=== PATIENT | female | born 1970 | race Caucasian/White ===

== ENCOUNTER 2019-12-03 12:43 | Outpatient (CLI) | payer BC, SELFPAY ==
--- NOTE | 2019-12-03 12:56 | XR_ITS ---
WS: [id number] LATERAL LUMBAR SPINE: 3 view. Lateral radiographs are performed in upright neutral, flexion and extension to the patient's toleranc e. HISTORY: LOW BACK PAIN COMPARISON: 05/23/2018 Mild concave deformity involving the superior endplate of L4 consistent with the previously described compression fracture. No retropulsion. Less than 2 mm retrolisthesis of L2-L4. No instability with f lexion or extension. XR/XR lumbar spine f/e only [id number] IMPRESSION: 1. No lumbar spine instability. 2. Stable 10% compression fracture L4.
== END 2019-12-03 12:44 | disposition home or self-care (01) ==
PROVIDERS: Family Provider Nurse Practitioner Family; PCP Nurse Practitioner Family; Visit Provider Nurse Practitioner
DX: M48.56XA Collapsed vertebra, not elsewhere classified, lumbar region, initial encounter for fracture (principal); M54.5 Low back pain
CPT/HCPCS: 72120

== ENCOUNTER 2019-12-06 10:08 | Outpatient (CLI) | payer BC, SELFPAY ==
--- NOTE | 2019-12-06 10:27 | MR_ITS ---
WS: [id number] MRI LUMBAR SPINE NONCONTRAST HISTORY: LOW BACK PAIN COMPARISON: None available. TECHNIQUE: Sagittal and axial multisequence imaging is submitted. Normal posterior lumbar alignment. Mild anterior wedging of L4. No acute edema within the vertebral b florinda. There is edema within the LEFT L4 pedicle and lamina and the inferior L3 articular facet on the LEFT. Small amount of edema in the interspinous ligaments at L3-4 and L4-5 on the LEFT. Disc spaces and vertebral body heights are well-preserved. Conus terminates normally at L1. L1-L2: Normal. L2-L3: Small amount of fluid in the facet joints. Very slight disc bulging without stenosis. L3-L4: Mild ligamentum flavum hypertrophy and annular disc bulging. No significant stenosis. L4-L5: Mild ligamentum flavum disease and facet arthropathy. RIGHT facet joint cyst is slightly lobul ated and heterogeneous measuring 9 mm. There is also an annular fissure LEFT subarticular recess. No significant stenosis although there is mild beginning encroachment and narrowing of the foramen. L5-S1: Mild annular disc bulging. Paravertebral soft tissues are normal. MR/MR lumbar spine wo con* [id number] IMPRESSION: 1. Mild anterior wedging of L4. Due to a remote injury, new since 2010 but pre sent on 05/23/2018. 2. Marrow edema in the LEFT L4 pedicle and lamina and the inferior LEFT L3 art icular facet. Additional edema in the adjacent interspinous ligaments. May be d ue to mild inflammatory synovitis/arthropathy or instability. 3. Facet joint cyst measures 9 mm on the RIGHT at L4-5.
== END 2019-12-06 10:09 | disposition home or self-care (01) ==
LOC: RADWPI 10:11
PROVIDERS: Family Provider Nurse Practitioner Family; PCP Nurse Practitioner Family; Visit Provider Nurse Practitioner
DX: M53.86 Other specified dorsopathies, lumbar region (principal); M54.5 Low back pain
CPT/HCPCS: 72148

== ENCOUNTER → 2020-04-27 11:45 | Outpatient (BNVA) | payer BC, OTHER, SELFPAY | PROVIDERS: Family Provider Nurse Practitioner Family; PCP Nurse Practitioner Family; Visit Provider Obstetrics & Gynecology | DX: N93.9 Abnormal uterine and vaginal bleeding, unspecified (principal) | CPT/HCPCS: 81025 ==

== ENCOUNTER 2020-06-01 16:51 | Inpatient (IN) | payer BC, OTHER, SELFPAY ==
[2020-06-01] VITALS (14 sets, daily range): BP systolic 93–117; BP diastolic 48–67; PULSE 95–120; RESP 22–30; TEMP 36.6–39.2; O2SAT 100
--- NOTE | 2020-06-01 17:07 | W.ED.RECABL ---
HPI - Recheck/Abnormal Lab/Rx General: Chief Complaint: Recheck/Abnormal Lab/Rx Stated Complaint: abnormal labs Time Seen by Provider: 06/01/20 17:02 History of Present Illness: HPI narrative: 49-year-old female sent over by gynecology over concerns of low blood count. The patient's had some ongoing vaginal bleeding and was found to have a hemoglobin of 6.5 today. The patient hasn't felt well for quite some time she's had bleeding for several months now. Over the past several days she's had intermittent episodes of shortness of breath and temperature elevation she was tested for glesaon virus and found to be negative although they've recommended quarantine. The patient is generally weak and has concerns of fatigue and malaise. She denies any significant abdominal pain. She occasionally is nauseated. She is fairly anxious about her health. complaint: abnormal lab Initial visit (ago): week(s) Review of Systems General: Reports: 10 or more systems reviewed and unremarkable except in HPI and below Const: Reports: fever(s), fatigue and malaise; Denies: diaphoresis Eyes: Denies: change in vision ENMT: Denies: throat pain Card: Reports: dyspnea on exertion Resp: Reports: dyspnea; Denies: hemoptysis GI: Reports: nausea; Denies: abdominal pain, vomiting or change in bowel habits Musc: Denies: neck pain Skin/Breast: Denies: rash Psych: Reports: anxiety Samuel/Lymph: Reports: easy bruising; Denies: petechiae, purpura, enlarged lymph nodes or tender lymph nodes [facility] PFSH: Medical History Abnormal uterine bleeding (AUB) The most common causes of excessive menstrual bleeding are: anovulation, abnormal growths in the uterus, such as polyps or fibroids, and bleeding disorders. Evaluation entails blood tests to look for a bleeding disorder, anemia, or thyroid disease, a pelvic ultrasound, which can detect endometrial polyps and fibroids, an endometrial biopsy or a hysteroscopy. Treatment options are medical treatment and surgical treatment. But the best treatment of heavy menstrual bleeding will depend on the cause of the bleeding and the patient?s preferences with need to prevent or desire to have children in the future. Medical treatment can be Hormonal control, (the pill, skin patch, vaginal ring, shot, hormonal IUD, and implant), Antifibrinolytic medicines, Non-steroidal anti-inflammatory drugs, Progestin pills, GnRH agonists. But due to the patient's smoking/tobacco use estrogen treatment is not advisable. H&H on 10/01/19 she was Hgb at 7.3 and HCT at 22. She refers she feel dizziness. Since she had continue to bleed I will admit the patient for blood transfusion and initiation of tranexamic acid treatment. Anxiety and depression Ulnar nerve damage Left ulnar nerve surgery Surgical History H/O dilation and curettage H/O LEEP at age 26. Family History Father Chronic kidney disease (CKD) Grandmother Dementia Brother Suicide Denies family history of Diabetes CAD (coronary artery disease) Clotting disorder Hyperlipidemia Psychiatric illness Anesthesia complication Bleeding disorder Family history of premature coronary artery disease Lung disease Cancer Hypertension Stroke Social History Smoking and tobacco status: current every day smoker cigarettes [ Other cigarette details: Started at age 14 ] Alcohol intake: current Alcohol intake frequency: holidays/special occasions only Substance/Drug Use: never Other details last substance use: Denies drug use Lives independently: Yes Household members: none Marital status: Single Current occupational status: employed Physical Exam Const: COMMON NORMALS: no acute distress, average body habitus, patient oriented x3, no limitations, healthy appearing, alert and well nourished HENMT: COMMON NORMALS: normocephalic HEAD & SCALP: normocephalic Eye: COMMON NORMALS: Equal, round and reactive pupils present, EOMs intact bilaterally and conjunctivae normal CONJUNCTIVA: Yes conjunctivae normal PUPIL: Yes Equal, round and reactive pupils present Neck/C-Spine: COMMON NORMALS: full ROM, no lymphadenopathy, supple, no meningeal signs, no JVD, Thyroid normal and No carotid bruits THYROID: Thyroid normal Chest: COMMONS NORMALS: normal inspection of the chest and normal palpation of entire chest wall Resp: COMMON NORMALS: normal respiratory effort, No retractions, No use of accessory muscles, clear to auscultation bilaterally and percussion normal AUSCULTATION: clear to auscultation bilaterally PERCUSSION: percussion normal Cardio: COMMON NORMALS: no JVD GI: COMMON NORMALS: Normal to inspection, nondistended, normoactive bowel sounds present, Soft to palpation, non-tender, No hepatosplenomegaly present, no masses and no bruits PALPATION: Yes Soft to palpation and Yes No hepatosplenomegaly present : COMMON NORMALS: Yes no CVA tenderness BLADDER/KIDNEY EXAM: Yes no CVA tenderness Back/Pelvis: COMMON NORMALS: no CVA tenderness Extremity: COMMON NORMALS: normal to inspection, full ROM, capillary refill normal, no joint enlargement, no clubbing, cyanosis or edema, no calf tenderness and no pedal edema Neuro: COMMON NORMALS: patient oriented x3 SENSORIUM/ORIENTATION: Yes alert MENINGEAL SIGNS: Yes no meningeal signs Skin: COMMON NORMALS: no rashes or lesions noted, no wounds, turgor normal, no jaundice, no petechiae and no mottling GENERAL SKIN EXAM: no rashes or lesions noted and turgor normal Course Vital Signs: Vital signs: Vital Signs Temperature 99.5 F 06/01/20 21:49 Pulse Rate 115 H 06/01/20 21:49 Respiratory Rate 24 H 06/01/20 21:49 Blood Pressure 107/48 06/01/20 21:49 Pulse Oximetry 100 06/01/20 21:49 MDM - Recheck/Abnormal Lab/Rx MDM Narrative: Medical decision making narrative: discussed differential diagnosis. Recommend further workup visits not clear this is just straightforward blood loss anemia. Check ultrasound of her pelvis as well as some routine labs. She is febrile and tachycardic we have to consider pneumonia and other infections. Check a chest x-ray do serial reexaminations. Chest x-ray was normal we sent a d-dimer was elevated talked about the risks benefits alternatives and complications of performing a CT scan and she agreed to admit for diagnostic purposes this was necessary. We'll pretreat her with some fluids and Solu-Medrol and obtain a CT scan of her abdomen and pelvis as well as her chest to rule out pulmonary embolism and get further information she may have pneumonia or other entities will be able to diagnose more accurately treat I don't think it's appropriate this point start empiric antibiotics. There certainly is some diagnostic uncertainty and I've talked to the patient hospitalist about this. Lab Data: Labs: Lab Results 06/01/20 06/01/20 06/01/20 Range/Units 17:30 17:30 17:30 D-Dimer 1.83 H (0-0.59) ug/mIFE U Sodium 130 L (136-145) mmol/L Potassium 3.3 L (3.5-5.1) mmol/L Chloride 100 (98-107) mmol/L Carbon Dioxide 16 L (22-29) mmol/L Anion Gap 17.3 (5-19) BUN 26 H (6-20) mg/dL Creatinine 2.2 H (0.5-0.9) mg/dL GFR Calculation 23.7 L (90-130) mL/min Glucose 144 H (65-115) mg/dL Calculated Osmolal ity 269 L (285-295) mOsm/k g Calcium 8.1 L (8.5-10.5) mg/dL Blood Type A Positive Rho(D) Type Positive Antibody Screen Negative Discharge Plan Discharge Patient Disposition: Admitted As Inpatient Clinical Impression: Abnormal uterine bleeding (AUB), Acute kidney injury, Acute blood loss anemia, Elevated d-dimer Fever Qualifiers: Fever type: unspecified Qualified Code(s): R50.9 - Fever, unspecified Condition: Stable Referrals: Leslie Kimball APN [Primary Care Provider] - Coding Level of Care Code ED Janitor Supervisor for Jagjit Pelletier
--- NOTE | 2020-06-01 17:34 | XRR_ITS ---
PROCEDURE INFORMATION: Exam: XR Chest, 1 View Exam date and time: 06/01/2020 5:52 PM Age: 49 years old Clinical indication: Dyspnea; Additional info: SOB TECHNIQUE: Imaging protocol: XR of the chest Views: 1 view. COMPARISON: No relevant prior studies available. FINDINGS: Lungs: Unremarkable. No consolidation. Pleural space: Unremarkable. No pleural effusion. No pneumothorax. Heart/Mediastinum: Unremarkable. No cardiomegaly. Bones/joints: Unremarkable. XR/XR chest 1V portable [id number] IMPRESSION: No acute findings.
[2020-06-01 17:57] LABS: Anion Gap 17.3 (5-19); Blood Urea Nitrogen 26 mg/dL (6-20); Calcium 8.1 mg/dL (8.5-10.5); Carbon Dioxide 16 mmol/L (22-29); Chloride 100 mmol/L (98-107); Glomerular Filtration Rate 23.7 mL/min (90-130); Glucose 144 mg/dL (65-115); Osmolality Calculated 269 mOsm/kg (285-295); Potassium 3.3 mmol/L (3.5-5.1); Sodium 130 mmol/L (136-145)
--- NOTE | 2020-06-01 18:42 | USR_ITS ---
PROCEDURE INFORMATION: Exam: US Nonobstetric Pelvis; Complete Exam date and time: 06/01/2020 7:54 PM Age: 49 years old Clinical indication: Menstruation abnormalities; Irregular menstruation; Additional info: Suprapubic pain, blood loss anemia TECHNIQUE: Imaging protocol: Transabdominal pelvic nonobstetric ultrasound. Complete exam. Real time ultrasound with image documentation. COMPARISON: No relevant prior studies available. FINDINGS: Uterus/cervix: Examination reveals a markedly abnormal endometrium. The endometrial stripe cannot be clearly defined and there is no visible clear transition zone. The sonographic findings raise strong concern for potential endometrial carcinoma. The approximate dimensions of the endometrium are 3.4 cm in AP diameter by 3.8 cm in transverse diameter. Small nabothian cysts. Right adnexa: Right ovary appears sonographically unremarkable and measures 21 mm x 6 mm x 16 mm. Positive arterial flow to color Doppler assessment. Normal appearing follicle cysts. No visible right adnexal pathology. Left adnexa: The left ovary appears unremarkable measuring 24 mm x 9 mm x 17 mm. Positive arterial flow to color Doppler assessment. Normal appearing follicle cysts. No visible left adnexal pathology. Free fluid: No free fluid in the cul-de-sac. Bladder: Not imaged. US/US pelvic complete* [id number] IMPRESSION: Markedly abnormal appearing endometrium. Concern for endometrial carcinoma.
--- NOTE | 2020-06-01 20:35 | P.HP_ITS ---
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 Sinus tachycardia noted with pulse 110. She was referred to emergency department for evaluation. She reports that also has been having malaise, headache, and has been spiking fevers. Here fever 102.5. She reports that her headaches have been going on for months. However, malaise, chills, sweats, fevers have been going on since Friday. Due to this she was tested for COVID-19 at [facility] for which today she received the result which was negative. She denies any chest pain. She does have mild intermittent cough. She is not coughing up any phlegm or blood. Chest x-ray is not suggestive of pneumonia. Her headache is worse when she is coughing. She is also noted to have acute kidney injury, creatinine up to 2.2, with normal ba seline. She says she has been taking quite a bit of ibuprofen, intermittently with Tylenol to help with aches, pains, headaches and fever. She says her appetite has been poor since Friday, but she says she has been staying very well-hydrated drinking lots of water. Review of Systems Const: Denies: fever(s), chills, body aches or malaise Eyes: Denies: change in vision or eye redness ENMT: Denies: throat pain, oral sores or ear or mastoid pain Card: Denies: chest pain, edema, pre-syncope or dyspnea on exertion Resp: Denies: dyspnea, productive cough, change in phlegm color or hemoptysis GI: Denies: abdominal pain, nausea, vomiting, diarrhea, constipation, hematochezia or melena : Denies: flank pain, urinary frequency or hematuria Musc: Denies: back pain, joint swelling or joint redness Skin/Breast: Denies: rash, sores or new lesions Neuro: Denies: headache(s), numbness in extremities, weakness in extremities, dizziness, confusion or seizure-like activity Endo: Denies: polyuria or polydipsia Samuel/Lymph: Denies: easy bleeding or purpura All/Imm: Denies: urticaria, throat swelling or tongue swelling Medications/Allergies Home Medications Medication Instructions Recorded Confirmed Last Taken Type alprazolam 0.5 mg tablet 0.25 - 0.5 mg PO BID PRN tab 04/27/20 06/01/20 05/31/20 History citalopram 40 mg tablet 40 mg PO DAILY 04/27/20 06/01/20 06/01/20 History cyclobenzaprine 10 mg tablet 10 mg PO TID PRN 04/27/20 06/01/20 05/31/20 History ibuprofen 800 mg tablet 800 mg PO TID PRN 04/27/20 06/01/20 06/01/20 History multivitamin 1 tab PO DAILY 04/27/20 06/01/20 06/01/20 History acetaminophen [Tylenol Extra 1,000 mg PO PRN 06/01/20 06/01/20 06/01/20 History Strength] Allergies Allergy/AdvReac Type Severity Reaction Status Date / Time shellfish derived Allergy ALGY-Swell Verified 06/01/20 17:57 Lip/Tongue/Throat PFSH Acute PFSH: Medical History Abnormal uterine bleeding (AUB) The most common causes of excessive menstrual bleeding are: anovulation, abnormal growths in the uterus, such as polyps or fibroids, and bleeding disorders. Evaluation entails blood tests to look for a bleeding disorder, anemia, or thyroid disease, a pelvic ultrasound, which can detect endometrial polyps and fibroids, an endometrial biopsy or a hysteroscopy. Treatment options are medical treatment and surgical treatment. But the best treatment of heavy menstrual bleeding will depend on the cause of the bleeding and the patient?s preferences with need to prevent or desire to have children in the future. Medical treatment can be Hormonal control, (the pill, skin patch, vaginal ring, shot, hormonal IUD, and implant), Antifibrinolytic medicines, Non-steroidal anti-inflammatory drugs, Progestin pills, GnRH agonists. But due to the patient's smoking/tobacco use estrogen treatment is not advisable. H&H on 10/01/19 she was Hgb at 7.3 and HCT at 22. She refers she feel dizziness. Since she had continue to bleed I will admit the patient for blood transfusion and initiation of tranexamic acid treatment. Anxiety and depression Ulnar nerve damage Left ulnar nerve surgery Surgical History H/O dilation and curettage H/O LEEP at age 26. Family History Father Chronic kidney disease (CKD) Grandmother Dementia Brother Suicide Denies family history of Diabetes CAD (coronary artery disease) Clotting disorder Hyperlipidemia Psychiatric illness Anesthesia complication Bleeding disorder Family history of premature coronary artery disease Lung disease Cancer Hypertension Stroke Social History Smoking and tobacco status: current every day smoker cigarettes [ Other cigarette details: Started at age 14 ] Alcohol intake: current Alcohol intake frequency: holidays/special occasions only Substance/Drug Use: never Other details last substance use: Denies drug use Lives independently: Yes Household members: none Marital status: Single Current occupational status: employed Vitals/I&O/Wt Last Vital Signs Temp 98.2 F 06/01/20 17:00 Pulse 110 H 06/01/20 19:00 Resp 30 H 06/01/20 19:00 BP 111/61 06/01/20 19:00 Pulse Ox 100 06/01/20 19:00 Physical Exam Const: COMMON NORMALS: no acute distress and patient oriented x3 HENMT: COMMON NORMALS: oropharynx normal Neck/C-Spine: COMMON NORMALS: no JVD Resp: COMMON NORMALS: normal respiratory effort and clear to auscultation bilaterally AUSCULTATION: clear to auscultation bilaterally Cardio: COMMON NORMALS: no JVD, regular rhythm, S1 normal heart sound present, S2 normal heart sound present and No murmurs present (Cardio) RHYTHM: regular rhythm HEART SOUNDS: S1 normal heart sound present and S2 normal heart sound present GI: COMMON NORMALS: Normal to inspection, nondistended, normoactive bowel sounds present, Soft to palpation and non-tender PALPATION: Yes Soft to palpation : COMMON NORMALS: Yes no CVA tenderness Extremity: COMMON NORMALS: no joint enlargement and no pedal edema Neuro: COMMON NORMALS: patient oriented x3 and moves all extremities Skin: COMMON NORMALS: no rashes or lesions noted GENERAL SKIN EXAM: no rashes or lesions noted Data : 06/01/20 17:30 A&P Assessment and plan (1) Acute blood loss anemia: Hemoglobin down to 6.5. With symptomatic anemia with severe fatigability, tachycardia, soft blood pressure, 93/66, although without history of hyperten moses. Blood transfusion has been ordered for her. Recurrent vaginal bleeding as below. Pending evaluation by gynecology. Concern for possible endometrial cancer based on results of transvaginal ultrasound. Pending additional studies with regards to tachycardia, dyspnea, abnormal d- dimer, as well as fever, shortness of breath. Subsequently to be monitored in ICU. Status: Acute (2) Abnormal uterine bleeding (AUB): Recurrent uterine bleeding, reportedly with ultrasound and biopsy of endometrium back in September. Subsequently with recurrence again, seen on 04/27 and reassessed, had Nexplanon implanted, underwent course of treatment with tranexamic acid. Reports of continued bleeding subsequently up until yesterday when all bleeding stopped. With symptomatic anemia as above currently. Assessed with transvaginal ultrasound in ER with finding of grossly abnormal endometrium, concerning for endometrial cancer normal. Awaiting gynecologic evaluation by Dr. Santana. Status: Acute (3) Abnormal ultrasound of endometrium: Concerning for endometrial carcinoma. As above. Status: Acute (4) Elevated d-dimer: Reports having quite significant very easy fatigability, as well as dyspnea, intermittent cough since Friday. Noted with sinus tachycardia 110. At the same time does have fever. Possible Pascual carcinoma, smoking, control +/-tranexamic acid may add to her risk of VTE. Discussed with her concerned that VTE may be a possibility, possibly PE, and would require additional assessment. D-dimer was assessed, but was not low. Unfortunately with kidney injury not an optimal situation. Risk of contrast nephropathy was discussed with her. Also with possible sepsis, with fever, tachycardia, reports some abdominal fullness. Given source of sepsis is not clear, without any pneumonia visualized on chest x-ray, urine studies pending, but without any symptoms of dysuria, hematuria, or other symptoms of infection, with COVID-19 testing negative result come back today, concern is for other possible focus of infection. With tachycardia, soft blood pressure needs additional evaluation. VQ scan was discussed and considered, and may be preferred given kidney injury, however, this is not something is easily obtainable at this hour, and would not provide additional information for assessment of possible severe sepsis. Given need for additional imaging ER physician is recommending CT chest abdomen pelvis with contrast which would help rule out PE. Discussed also she has shellfish allergy, which appears was anaphylactic reaction, and would require premedication if iodinated contrast is administered, and he will discuss this with her It was also discussed with her that she would not be a candidate for anticoagula tion given active bleeding up until yesterday, severe anemia, possibility of endometrial carcinoma. In case PE was confirmed, would require placement of IVC filter device. Discussed w ER physician. Status: Acute (5) Fever: 102.5 Fahrenheit. Unclear source. Pending urinalysis. But denies any dysuria, hematuria, or other symptoms. Chest x-ray not suggestive of pneumonia. Was recently tested for COVID-19 and reports result was negative today. She is having some malaise, sweats, muscle aches, headache. Reports some abdominal fullness. This time would test with rapid flu. Also additional work-up as above, and include imaging of chest and abdomen due to concern for possible severe sepsis due to leukocytosis of 13, sinus tachycardia 116. Soft blood pressure. But also acute kidney injury, creatinine 2.2. Obtain blood cultures, lactic acid. For now is not started on antibiotic as there is truly no clear bacterial source of infection. There is no indication of tubo-ovarian abscess or other infection on transvaginal ultrasound. She denies any tampon use. Consideration that her fever may be coming from possible VTE. Less likely malignancy. Otherwise possible other viral infection. Or as last resort if no other explanation, possibly repeating COVID-19 testing may be considered. Status: Acute (6) Dyspnea: Additional work-up as above. No pneumonia on chest x-ray. She is saturating 98% on room air, although has been somewhat tachypneic, and so was placed on oxygen. She reports mild intermittent cough. Denies any phlegm production. No hemoptysis. There is no unilateral lower extremity swelling, d enies history of prior clots. D-dimer is abnormal. At this time additional evaluation as above to exclude PE as possible explanation. Otherwise easy fatigability may be explained by acute blood loss anemia which is symptomatic, although we will continue evaluating for additional causes of dyspnea. Continue monitor. Supportive oxygenation, wean down as tolerating. Status: Acute (7) Headache: Reports has been having headaches for several months. This appears not to be a chronic thing, but is bothered by it especially when she is coughing. Given chronicity will consider adding plain CT of the head. She is not having photophobia, neck tenderness or stiffness, or other meningeal signs. In case no other clinicians found, may need to consider additional ablation possibly by LP. For now given her respiratory complaints, lack of meningeal signs, and is completely alert, good insight, and no focal neurologic abnormalities, [employer] infection appears much less likely, also considering chronicity of her headache. But this needs to be kept as a possible consideration. Status: Acute (8) Acute kidney injury: Creatinine 2.2. Normal baseline. Not a clear etiology. Denies any hematuria. Denies any history of kidney stones. UA is pending. We will request additional urine studies with urine creatinine, sodium. Check kidney ultrasound. With consideration of sepsis as above is a possibility, may need to keep a consideration of possible severe sepsis with acute kidney injury, although it appears more likely that this is due to ibuprofen which she admits to taking quite a bit at home recently. Reports her appetite has been poor since Friday, however, does say she has been drinking quite a bit of water. Status: Acute (9) Anxiety and depression: Noted. Continue medications. Status: Acute Additional A&P Information Discussed in detail with patient, and she is agreeable with assessment and plan of treatment as currently. Answered all questions. Attestations Medical Necessity Statement*: Admission of over 2 midnights is going to needed for assessment management of acute symptomatic anemia, abnormal uterine bleeding, possible uterine cancer, as well as fever, malaise, tachycardia, abnormal d-dimer, acute kidney injury. 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
[2020-06-01 20:42] LABS: D Dimer 1.83 ug/mIFEU (0-0.59)
[2020-06-01] MEDS: acetaminophen 500 mg Tablet 1000 MG PO (20:52)
[2020-06-01] MEDS: sodium chloride 0.9% 1,000 ML 999 ML IV (20:53)
--- NOTE | 2020-06-01 20:54 | CTR_ITS ---
PROCEDURE INFORMATION: Exam: CT Angiography Chest With Contrast Exam date and time: 06/01/2020 9:43 PM Age: 49 years old Clinical indication: Abnormal findings; Abnormal radiologic finding of the abdomen; Radiologic exam and body structure: US abdomen; Abnormal radiologic exam of lung or chest; Additional info: Tachycardia, rule out pe. Abnormal US ? endometrial cancer TECHNIQUE: Imaging protocol: Computed tomographic angiography of the chest with intravenous contrast. 3D rendering: MIP and/or 3D reconstructed images were created by the technologist. Radiation optimization: All CT scans at this facility use at least one of these dose optimization techniques: automated exposure control; mA and/or kV adjustment per patient size (includes targeted exams where dose is matched to clinical indication); or iterative reconstruction. Contrast material: VISI 320; Contrast volume: 150 ml; Contrast route: INTRAVENOUS (IV); COMPARISON: CR XR chest 1V portable [id number] 06/01/2020 5:41 PM RADIATION DOSE METRICS: Total DLP (mGy-cm): 2835.77 FINDINGS: Pulmonary arteries: No visible pulmonary embolism/pulmonary arterial thrombus. Aorta: Unremarkable. No aortic aneurysm. No aortic dissection. Lungs: No visible active interstitial or alveolar airspace disease. No evidence for restrictive or reactive airway disease. Pleural space: Unremarkable. No pneumothorax. No pleural effusion. Heart: Unremarkable. No cardiomegaly. No pericardial effusion. Lymph nodes: Unremarkable. No enlarged lymph nodes. Bones/joints: No visible active osseous pathology. Soft tissues: Unremarkable. IMPRESSION: No visible pulmonary embolism/pulmonary arterial thrombus. PROCEDURE INFORMATION: Exam: CT Abdomen And Pelvis With Contrast Exam date and time: 06/01/2020 9:43 PM Age: 49 years old Clinical indication: Abnormal findings; Abnormal radiologic finding of the abdomen; Radiologic exam and body structure: US abdomen; Abnormal radiologic exam of lung or chest; Additional info: Tachycardia, rule out pe. Abnormal US ? endometrial cancer TECHNIQUE: Imaging protocol: Computed tomography of the abdomen and pelvis with intravenous contrast. Radiation optimization: All CT scans at this facility use at least one of these dose optimization techniques: automated exposure control; mA and/or kV adjustment per patient size (includes targeted exams where dose is matched to clinical indication); or iterative reconstruction. Contrast material: VISI 320; Contrast volume: 150 ml; Contrast route: INTRAVENOUS (IV); COMPARISON: CR XR chest 1V portable [id number] 06/01/2020 5:41 PM RADIATION DOSE METRICS: Total DLP (mGy-cm): 2835.77 FINDINGS: Liver: Tiny 6 mm low-density structure within the right hepatic lobe posterior segment. This is too small to characterize definitively. Suspect benign structure such as a tiny cyst versus tiny cavernous hemangioma. Liver otherwise unremarkable. Gallbladder and bile ducts: Normal. No calcified stones. No ductal dilation. Pancreas: Normal. No ductal dilation. Spleen: Tiny splenule. Spleen otherwise unremarkable. Adrenals: Normal. No mass. Kidneys and ureters: Right kidney appears edematous. Concern for mild right pyelonephritis. Incidental note of a tiny cortical cyst equator right kidney. No follow-up recommended. Left kidney unremarkable. No hydronephrosis or perinephric fluid bilaterally. No visible nephrolithiasis. No visible ureterolithiasis. Stomach and bowel: Unremarkable. No obstruction. No mucosal thickening. Appendix: The appendix is noninflamed. Intraperitoneal space: Unremarkable. No free air. No significant fluid collection. Vasculature: Unremarkable. No abdominal aortic aneurysm. Lymph nodes: No visible mesenteric or retroperitoneal lymphadenopathy. No visible pelvic lymphadenopathy. Bladder: Unremarkable as visualized. Reproductive: Enlarged uterus with an abnormal appearing endometrium. Please review ultrasound pelvis examination report same admission. Concern for endometrial carcinoma. Bones/joints: No visible active osseous pathology. No visible osteolytic or osteoblastic destructive process. Soft tissues: Unremarkable. CT/CT angio chest w abd pel w con IMPRESSION: 1. Findings raising suspicion for mild right pyelonephritis. 2. Enlarged uterus with an abnormal appearing endometrium. Please review ultrasound pelvic examination report same admission. Concern for endometrial carcinoma. 3. Other nonurgent and nonemergent findings as discussed in text. Radiation Dose CTDIVOL = (mGy): DLP = 2835.77~2835.77 (mGy-cm)
[2020-06-01] MEDS: diphenhydrAMINE 50 mg/mL SDV 1mL IVP (21:06)
[2020-06-01] MEDS: iodixanol 320 mg/mL 100mL Btl IV ×2 (22:30→22:31)
[2020-06-01 22:46] LABS: Bacteria Urine 2+; Bilirubin Urine Neg (NEGATIVE); Blood Urine 3+ (Negative); Glucose Urine UA Norm (Normal); Ketones Urine Negative (Negative); Leukocyte Esterase Urine 2+ (Negative); Nitrate Urine Negative (Negative); Protein Urine Trace (Negative); Specific Gravity, Urine 1.005 (1.005-1.030); Urine Appearance Clear (CLEAR); Urine Color Yellow (Yellow); Urobilinogen Urine Norm (Negative); pH Urine 5 (5-7)
[2020-06-01 22:47] LABS: Add Urine Culture? Yes
[2020-06-01 22:51] LABS: RBC Urine 0-4 /hpf (0-2); Squamous Epithelial Cell Urine 0-4 (0-5)
[2020-06-01] MEDS: sodium chloride 0.9% 1,000 ML 100 ML IV (23:01)
[2020-06-01 23:29] LABS: Influenza A by IFA Negative (Negative); Influenza B by IFA Negative (Negative)
[2020-06-02] VITALS (126 sets, daily range): BP systolic 59–129; BP diastolic 26–95; PULSE 65–113; RESP 12–37; TEMP 36.7–36.9; O2SAT 84–100
[2020-06-02] MEDS: cefTRIAXone 2,000 MG in sodium chloride 0.9% (plus) 50 ML 100 MG IV (00:52)
--- NOTE | 2020-06-02 05:34 | PC.NURSE ---
unable to apply SCD. difficulty locating SCD hose in hospital. will continue looking.
[2020-06-02] MEDS: sodium chloride 0.9% 1,000 ML 100 ML IV ×3 (05:59→22:13)
[2020-06-02 06:12] LABS: Basophils % 0.2 %; Hemoglobin 8.2 g/dL (11.5-15.3); Lymphocytes # 0.5 10^3/uL (0.8-4.8); Lymphocytes % 4.1 %; Mean Corpuscular HGB Conc 31.5 g/dL (30.0-36.0); Mean Corpuscular Hemoglobin 27.6 pg (28.0-34.0); Mean Corpuscular Volume 87.5 fL (81-99); Mean Platelet Volume 11.5 fL (7.4-10.4); Monocytes # 0.3 10^3/uL (0.2-0.9); Neutrophils # 10.25 10^3/uL (1.8-7.7); Nucleated Red Blood Cells % 0 %; Platelet Count 262 10^3/cmm (130-400); Red Blood Count 2.97 10^6/uL (4.1-5.3); Red Cell Distribution Width 16.5 % (12.1-15.1); White Blood Count 11.2 10^3/uL (4.0-10.0)
[2020-06-02 06:27] LABS: Lactate (Lactic Acid level) 1.3 mmol/L (0.5-2.2)
[2020-06-02 07:21] LABS: Anion Gap 16.9 (5-19); Blood Urea Nitrogen 25 mg/dL (6-20); Calcium 8.3 mg/dL (8.5-10.5); Carbon Dioxide 14 mmol/L (22-29); Chloride 110 mmol/L (98-107); Glomerular Filtration Rate 29.9 mL/min (90-130); Glucose 169 mg/dL (65-115); Osmolality Calculated 285 mOsm/kg (285-295); Potassium 3.9 mmol/L (3.5-5.1); Sodium 137 mmol/L (136-145)
[2020-06-02] MEDS: citalopram 20 mg Tablet 40 MG PO (11:04)
--- NOTE | 2020-06-02 12:02 | PC.RESP ---
Smoking Cessation information sent to patient.
--- NOTE | 2020-06-02 16:55 | P.PN_ITS ---
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 With symptomatic anemia with severe fatigability, tachycardia, soft blood pressure, 93/66, although without history of hypertension. Blood transfusion has been ordered for her. Recurrent vaginal bleeding as below. Pending evaluation by gynecology. Concern for possible endometrial cancer based on results of transvaginal ultrasound. Pending additional studies with regards to tachycardia, dyspnea, abnormal d- dimer, as well as fever, shortness of breath. Subsequently to be monitored in ICU. Status: Acute (2) Abnormal uterine bleeding (AUB): Recurrent uterine bleeding, reportedly with ultrasound and biopsy of endometrium back in September. Subsequently with recurrence again, seen on 04/27 and reassessed, had Nexplanon implanted, underwent course of treatment with tranexamic acid. Reports of continued bleeding subsequently up until yesterday when all bleeding stopped. With symptomatic anemia as above currently. Assessed with transvaginal ultrasound in ER with finding of grossly abnormal endometrium, concerning for endometrial cancer normal. Awaiting gynecologic evaluation by Dr. Santana. Status: Acute (3) Abnormal ultrasound of endometrium: Concerning for endometrial carcinoma. As above. Status: Acute (4) Elevated d-dimer: Reports having quite significant very easy fatigability, as well as dyspnea, intermittent cough since Friday. Noted with sinus tachycardia 110. At the same time does have fever. Possible Pascual carcinoma, smoking, control +/-tranexamic acid may add to her risk of VTE. Discussed with her concerned that VTE may be a possibility, possibly PE, and would require additional assessment. D-dimer was assessed, but was not low. Unfortunately with kidney injury not an optimal situation. Risk of contrast nephropathy was discussed with her. Also with possible sepsis, with fever, tachycardia, reports some abdominal fullness. Given source of sepsis is not clear, without any pneumonia visualized on chest x-ray, urine studies pending, but without any symptoms of dysuria, hematuria, or other symptoms of infection, with COVID-19 testing negative result come back today, concern is for other possible focus of infection. With tachycardia, soft blood pressure needs additional evaluation. VQ scan was discussed and considered, and may be preferred given kidney injury, however, this is not something is easily obtainable at this hour, and would not provide additional information for assessment of possible severe sepsis. Given need for additional imaging ER ph ysician is recommending CT chest abdomen pelvis with contrast which would help rule out PE. Discussed also she has shellfish allergy, which appears was anaphylactic reaction, and would require premedication if iodinated contrast is administered, and he will discuss this with her It was also discussed with her that she would not be a candidate for anticoagulation given active bleeding up until yesterday, severe anemia, possibility of endometrial carcinoma. In case PE was confirmed, would require placement of IVC filter device. Discussed w ER physician. Status: Acute (5) Fever: 102.5 Fahrenheit. Unclear source. Pending urinalysis. But denies any dysuria, hematuria, or other symptoms. Chest x-ray not suggestive of pneumonia. Was recently tested for COVID-19 and reports result was negative today. She is having some malaise, sweats, muscle aches, headache. Reports some abdominal fullness. This time would test with rapid flu. Also additional work-up as above, and include imaging of chest and abdomen due to concern for possible severe sepsis due to leukocytosis of 13, sinus tachycardia 116. Soft blood pressure. But also acute kidney injury, creatinine 2.2. Obtain blood cultures, lactic acid. For now is not started on antibiotic as there is truly no clear bacterial source of infection. There is no indication of tubo-ovarian abscess or other infection on transvaginal ultrasound. She den ies any tampon use. Consideration that her fever may be coming from possible VTE. Less likely alexa gnancy. Otherwise possible other viral infection. Or as last resort if no other explanation, possibly repeating COVID-19 testing may be considered. Status: Acute (6) Dyspnea: Additional work-up as above. No pneumonia on chest x-ray. She is saturating 98% on room air, although has been somewhat tachypneic, and so was placed on oxygen. She reports mild intermittent cough. Denies any phlegm production. No hemoptysis. There is no unilateral lower extremity swelling, denies history of prior clots. D-dimer is abnormal. At this time additional evaluation as above to exclude PE as possible explanation. Otherwise easy fatigability may be explained by acute blood loss anemia which is symptomatic, although we will continue evaluating for additional causes of dyspnea. Continue monitor. Supportive oxygenation, wean down as tolerating. Status: Acute (7) Headache: Reports has been having headaches for several months. This appears not to be a chronic thing, but is bothered by it especially when she is coughing. Given chronicity will consider adding plain CT of the head. She is not having photophobia, neck tenderness or stiffness, or other meningeal signs. In case no other clinicians found, may need to consider additional ablation possibly by LP. For now given her respiratory complaints, lack of meningeal signs, and is completely alert, good insight, and no focal neurologic abnormalities, MOBILE DESIGNER infection appears much less likely, also considering chronicity of her headache. But this needs to be kept as a possible consideration. Status: Acute (8) Acute kidney injury: Creatinine 2.2. Normal baseline. Not a clear etiology. Denies any hematuria. Denies any history of kidney stones. UA is pending. We will request additional urine studies with urine creatinine, sodium. Check kidney ultrasound. With consideration of sepsis as above is a possibility, may need to keep a consideration of possible severe sepsis with acute kidney injury, although it appears more likely that this is due to ibuprofen which she admits to taking quite a bit at home recently. Reports her appetite has been poor since Friday, however, does say she has been drinking quite a bit of water. Status: Acute (9) Anxiety and depression: Noted. Continue medications. Status: Acute Additional A&P Information Discussed in detail with patient, and she is agreeable with assessment and plan of treatment as currently. Answered all questions. Attestations Medical Necessity Statement*: tranfusion, awaiting ASSISTANT WINEMAKER plan Coding Level of Care Code Acute Inspector Line for [facility] Fwd Diagnoses Acute blood loss anemia D62 Abnormal uterine bleeding (AUB) N93.9 Abnormal ultrasound of endometrium R93.5 Elevated d-dimer R79.89 Fever R50.9 Dyspnea R06.00 Headache R51 Acute kidney injury N17.9 Anxiety and depression F41.9; F32.9
--- NOTE | 2020-06-02 16:55 | PC.NURSE ---
npo for surgery at this time visitor in room for visit
--- NOTE | 2020-06-02 18:34 | PM.PN ---
Subjective Subjective: Interval history: 49-year-old female had been seen at the clinic due to abnormal uterine bleeding she had been treated with tranexamic acid. She refers the bleeding slowed down but it restarted and she started feeling with general malaise and came to the emergency room where she was found with significant anemia and renal dysfunction. She received 2 units of packed red blood cells. Vitals/I&O/Wt Last Vital Signs Temp 98.5 F 06/02/20 02:40 Pulse 75 06/02/20 16:00 Resp 19 H 06/02/20 16:00 BP 110/70 06/02/20 11:00 Pulse Ox 100 06/02/20 16:00 06/02/20 06/02/20 06/02/20 06:59 14:59 22:59 Intake Total 2396.667 / 2396.667 998.333 / 998.333 Balance 2396.667 / 2396.667 998.333 / 998.333 Weight last 48 hrs Weight 89.675 kg Physical Exam Narrative: EXAM NARRATIVE: GA: Alert and oriented ?3. HEENT: WNL. Heart: Regular rate and rhythm. Lungs: Clear to auscultation bilaterally. 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 Extremities: No edema, no cyanosis, no calves pain. Data : 06/02/20 05:21 06/02/20 05:21 Micro: Microbiology 06/02/20 08:52 Blood Culture - Preliminary Blood SPECIMEN COLLECTED 06/02/20 08:49 Blood Culture - Preliminary Blood SPECIMEN COLLECTED A&P Assessment and plan (1) Abnormal uterine bleeding (AUB): Status: Acute (2) Acute blood loss anemia: Status: Acute Attestations Medical Necessity Statement*: In my professional opinion for admitting diagnosis Coding Level of Care Code Acute Water Quality Technician for [facility] Diagnoses Abnormal uterine bleeding (AUB) N93.9 Acute blood loss anemia D62
--- NOTE | 2020-06-02 18:47 | ANES.PREANE2 ---
Pre-Anesthetic Assessment Pre-Anesthetic Assessment: Height/Weight: Height 1.65 m Weight 89.675 kg Temp Pulse Resp BP Pulse Ox 98.5 F 75 19 H 110/70 100 06/02/20 02:40 06/02/20 16:00 06/02/20 16:00 06/02/20 11:00 06/02/20 16:00 Preop Diagnosis: Abnormal uterine bleeding Proposed Procedure: Operation Date: 06/02/20 17:00 Proposed Procedures p Dilation And Curettage (D&C)(Not Applicable) - Ronnell Santana MD Was Beta Silas taken within 24 hours: N/A Last intake: Intake Last Liquid Date 06/02/20 Last Liquid Time 10:00 Last Solid Date 06/01/20 Last Solid Time 10:00 Last Intake: 23:00 Social: Social History: No alcohol and No tobacco Packs per day: 1/2 Pack years: 20+ Exam: Pre-Anes Outpt Exam: alert, oriented x 3, clear to auscultation bilaterally and regular rate & rhythm Airway: Submandibular: WNL Cervical ROM: WNL Pulmonary: Pulmonary: JOSÉ Comments: Just past couple days with low h&h. received 2 PRBC CV/HEM: CV/HEM: Anemia : : None reported Hepatic: Hepatic: None reported GI: GI: GERD (occ food related) Metabolic: Metabolic: None reported Musc/skel: Musc/skel: Lower Back Pain Neuropsych: Neuropsych: Anxiety and Depression Anesthetic Plan: ASA status: 3 Anesthesia: Anesthesia Evaluation and General Risk of > 500 ml blood loss (7ml/kg in children): No Meds/Allergies Current Medications: Current Medications Generic Name Dose Route Start Last Admin Trade Name Freq PRN Reason Stop Dose Admin Citalopram Hydrobr omide 40 mg 06/02/20 09:00 06/02/20 11:04 Celexa PO 40 mg DAILY CORETTA Administration Sodium Chloride 1,000 mls @ 100 m ls/hr 06/01/20 22:30 06/02/20 15:58 Sodium Chloride 0.9% IV 100 mls/hr .Q10H CORETTA Administration PFSH Anesthesia PFSH: Medical History Abnormal uterine bleeding (AUB) The most common causes of excessive menstrual bleeding are: anovulation, abnormal growths in the uterus, such as polyps or fibroids, and bleeding disorders. Evaluation entails blood tests to look for a bleeding disorder, anemia, or thyroid disease, a pelvic ultrasound, which can detect endometrial polyps and fibroids, an endometrial biopsy or a hysteroscopy. Treatment options are medical treatment and surgical treatment. But the best treatment of heavy menstrual bleeding will depend on the cause of the bleeding and the patient?s preferences with need to prevent or desire to have children in the future. Medical treatment can be Hormonal control, (the pill, skin patch, vaginal ring, shot, hormonal IUD, and implant), Antifibrinolytic medicines, Non-steroidal anti-inflammatory drugs, Progestin pills, GnRH agonists. But due to the patient's smoking/tobacco use estrogen treatment is not advisable. H&H on 10/01/19 she was Hgb at 7.3 and HCT at 22. She refers she feel dizziness. Since she had continue to bleed I will admit the patient for blood transfusion and initiation of tranexamic acid treatment. Anxiety and depression Ulnar nerve damage Left ulnar nerve surgery Surgical History H/O dilation and curettage H/O LEEP at age 26. Family History Father Chronic kidney disease (CKD) Grandmother Dementia Brother Suicide Denies family history of Diabetes CAD (coronary artery disease) Clotting disorder Hyperlipidemia Psychiatric illness Anesthesia complication Bleeding disorder Family history of premature coronary artery disease Lung disease Cancer Hypertension Stroke Social History Smoking and tobacco status: current every day smoker cigarettes [ Other cigarette details: Started at age 14 ] Alcohol intake: current Alcohol intake frequency: holidays/special occasions only Substance/Drug Use: never Other details last substance use: Denies drug use Lives independently: Yes Household members: none Marital status: Single Current occupational status: employed Data Anesthesia CBC & Chem 7: 06/02/20 05:21 06/02/20 05:21 Other Labs: Laboratory Results - last 48 hr 06/01/20 06/01/20 06/01/20 17:30 17:30 17:30 WBC RBC Hgb Hct MCV MCH MCHC RDW Plt Count MPV Neut % (Auto) Lymph % (Auto) [place] % (Auto) Eos % (Auto) Baso % (Auto) Neut # (Auto) Lymph # (Auto) [place] # (Auto) Eos # (Auto) Baso # (Auto) Nucleated RBC % (auto) Nucleated RBCs # D-Dimer 1.83 H Sodium 130 L Potassium 3.3 L Chloride 100 Carbon Dioxide 16 L Anion Gap 17.3 BUN 26 H Creatinine 2.2 H GFR Calculation 23.7 L Glucose 144 H Calculated Osmolality 269 L Lactate Calcium 8.1 L Urine Color Urine Appearance Urine pH Ur Specific [place] Urine Protein Urine Glucose (UA) Urine Ketones Urine Blood Urine Nitrate Urine Bilirubin Urine Urobilinogen Ur Leukocyte Esterase Urine RBC Urine WBC Ur Squamous Epith Cells Ur Transition Epith Cell Urine Bacteria Influenza Type A Ag Influenza Type B Ag Blood Type A Positive Rho(D) Type Positive Antibody Screen Negative Crossmatch See Detail 06/01/20 06/01/20 06/02/20 22:10 22:40 05:21 WBC 11.2 H RBC 2.97 L Hgb 8.2 L Hct 26.0 L MCV 87.5 MCH 27.6 L MCHC 31.5 D RDW 16.5 H Plt Count 262 MPV 11.5 H Neut % (Auto) 92.0 Lymph % (Auto) 4.1 [place]kins % (Auto) 3.0 Eos % (Auto) 0.0 Baso % (Auto) 0.2 Neut # (Auto) 10.25 H Lymph # (Auto) 0.5 L [place] # (Auto) 0.3 Eos # (Auto) 0.0 Baso # (Auto) 0.0 Nucleated RBC % (auto) 0 Nucleated RBCs # 0.0 D-Dimer Sodium Potassium Chloride Carbon Dioxide Anion Gap BUN Creatinine GFR Calculation Glucose Calculated Osmolality Lactate Calcium Urine Color Yellow Urine Appearance Clear Urine pH 5 Ur Specific [place] 1.005 Urine Protein Trace Urine Glucose (UA) Norm Urine Ketones Negative Urine Blood 3+ H Urine Nitrate Negative Urine Bilirubin Neg Urine Urobilinogen Norm Ur Leukocyte Esterase 2+ H Urine RBC 0-4 H Urine WBC 10-15 H Ur Squamous Epith Cells 0-4 H Ur Transition Epith Cell Mrp Controller Urine Bacteria 2+ H Influenza Type A Ag Negative Influenza Type B Ag Negative Blood Type Rho(D) Type Antibody Screen Crossmatch 06/02/20 06/02/20 05:21 06:00 WBC RBC Hgb Hct MCV MCH MCHC RDW Plt Count MPV Neut % (Auto) Lymph % (Auto) [place] % (Auto) Eos % (Auto) Baso % (Auto) Neut # (Auto) Lymph # (Auto) [place] # (Auto) Eos # (Auto) Baso # (Auto) Nucleated RBC % (auto) Nucleated RBCs # D-Dimer Sodium 137 Potassium 3.9 Chloride 110 H Carbon Dioxide 14 L Anion Gap 16.9 BUN 25 H Creatinine 1.8 H GFR Calculation 29.9 L Glucose 169 H Calculated Osmolality 285 Lactate 1.3 Calcium 8.3 L Urine Color Urine Appearance Urine pH Ur Specific [place] Urine Protein Urine Glucose (UA) Urine Ketones Urine Blood Urine Nitrate Urine Bilirubin Urine Urobilinogen Ur Leukocyte Esterase Urine RBC Urine WBC Ur Squamous Epith Cells Ur Transition Epith Cell Urine Bacteria Influenza Type A Ag Influenza Type B Ag Blood Type Rho(D) Type Antibody Screen Crossmatch Micro: Microbiology 06/02/20 08:52 Blood Culture - Preliminary Blood SPECIMEN COLLECTED 06/02/20 08:49 Blood Culture - Preliminary Blood SPECIMEN COLLECTED Cardiac Studies: No Data to Display
--- NOTE | 2020-06-02 18:57 | PC.NURSE ---
patient off floor patient moved to surgery by surgery crew.
[2020-06-02] MEDS: ceFAZolin 1,000 mg SDV 1000 MG IVP (19:18)
--- NOTE | 2020-06-02 19:36 | PM.OP ---
Operative Report Date of procedure: June 02, 2020 Pre-op Diagnosis: Abnormal uterine bleeding Post-op diagnosis: same Post-op Findings: Proliferative Endometrium Procedure Done: Dilation and curettage Specimens removed/disposition: Endometrial curette Surgeon: Ronnell Santana Anesthesia: General Estimated blood loss (mL): 10 IV fluids (mL): 300 Complications: None Findings: Vaginal bleeding Condition: stable Disposition: PACU Brief History: 49-year-old female with history of abnormal uterine bleeding, unresponsive to medical management. Procedure: After informed consent, the patient was taken to the Operating Room where general anesthesia was administered. The patient was examined under anesthesia and found to have a normal uterus with normal adnexa. She was placed in the dorsal lithotomy position and prepped and draped in sterile fashion. A sterile open side speculum was placed in the patient?s vagina. A single-tooth tenaculum was then applied to the cervix. The uterus was then gently sounded to 9 cm and a curette was advanced gently to the uterine fundus. A sharp curettage was then performed until a gritty texture was noted. There was minimal bleeding noted and the tenaculum was removed with good hemostasis noted. The patient tolerated the procedure well. The patient was taken to the recovery area in stable condition.
--- NOTE | 2020-06-02 19:48 | PC.NURSE ---
patient back from surgery patient brought back by surgery crew at 194. patient alert and oriented. ivett pad in place. NS going. vital signs within normal limits. patient states that she is having slight abd cramping. rating pain a 6/10 pain. no other complaints at this time. will continue to monitor
[2020-06-02] MEDS: cyclobenzaprine 10 mg Tablet PO (20:20)
[2020-06-02] MEDS: acetaminophen 325 mg Tablet 650 MG PO (20:59)
[2020-06-02] MEDS: cefTRIAXone 1,000 MG in sodium chloride 0.9% (plus) 50 ML 100 MG IV (23:28)
[2020-06-03] VITALS (19 sets, daily range): BP systolic 86–125; BP diastolic 59–79; PULSE 62–93; RESP 14–24; TEMP 36.9–37.2; O2SAT 97–100
[2020-06-03 00:11] LABS: Hematocrit 25.2 % (37.0-47.0); Hemoglobin 7.5 g/dL (11.5-15.3)
[2020-06-03 07:10] LABS: Alanine Aminotransferase 16 U/L (0-33); Albumin Level 2.8 g/dL (3.5-5.2); Alkaline Phosphatase 128 IU/L (35-105); Aspartate Amino Transferase 8 U/L (0-32); Blood Urea Nitrogen 23 mg/dL (6-20); Calcium 8.1 mg/dL (8.5-10.5); Carbon Dioxide 16 mmol/L (22-29); Chloride 112 mmol/L (98-107); Globulin 3.2 g/dL (1.3-4.6); Glomerular Filtration Rate 43.5 mL/min (90-130); Glucose 126 mg/dL (65-115); Osmolality Calculated 288 mOsm/kg (285-295); Sodium 140 mmol/L (136-145); Total Bilirubin 0.2 mg/dL (0.15-1.2)
--- NOTE | 2020-06-03 10:37 | PC.NURSE ---
up in room ambulating no distress at this time ... no c/o pain
[2020-06-03] MEDS: acetaminophen 325 mg Tablet 650 MG PO (11:33)
[2020-06-03] MEDS: cefTRIAXone 1,000 MG in sodium chloride 0.9% (plus) 50 ML 100 MG IV (11:34)
[2020-06-03] MEDS: citalopram 20 mg Tablet 40 MG PO (11:34)
--- NOTE | 2020-06-03 11:38 | P.PN_ITS ---
Subjective Subjective: Interval history: s/p D&C last evening. Minimal spotting of blood on a pad overnight. Hemoglobin from last night is at 7.5, stable. Blood pressure this morning was noted to be systolic 86, however patient does not report any change in symptoms. No dizziness. She has gotten out of bed and walked around and was steady on her feet. Intermittently continues to be tachyc ardic with heart rate of 100. Passing some gas, however does feel bloated. 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 As above. s/p D& C yesetrday follow up with MICROSOFT DEVELOPER as outpatient. Status: Acute (3) Acute blood loss anemia: Hemoglobin down to 6.5. With symptomatic anemia with severe fatigability, tachycardia, soft blood pressure, 93/66, although without history of hyper tension. s/p 2 units Blood transfusion SBP 86 this morning, with HR 100, though patient denies any overt symptomc. Hb 8.2--> 7.5 overnight, will recheck now to ensure remains >7 prior to discharge Status: Acute (4) Fever: 102.[address] with R side pyelonephritis as likely source Now improving with empric iv CTX Was recently tested for COVID-19 and reports result was negative today. Acute kidney injury, creatinine 2.2, now improving to 1.3 with hydration No indication of tubo-ovarian abscess or other infection on transvaginal ultrasound. Status: Acute (5) Acute kidney injury: Creatinine 2., improving after blood transfusion and iv fluid Status: Acute (6) Abnormal uterine bleeding (AUB): s/p D& C yesetrday with Dr. Santana Status: Acute (7) Elevated d-dimer: CTA PE negative Status: Acute (8) Dyspnea: Resolved Status: Acute (9) Headache: resolved Status: Acute (10) Anxiety and depression: Noted. Continue medications. Status: Acute Additional A&P Information Discussed in detail with patient, and she is agreeable with assessment and plan of treatment as currently. Answered all questions. Attestations Medical Necessity Statement*: recheck labs, ensure Hb stability, still with soft BP and tachycardia Coding Level of Care Code Acute Retort Furnace Operator for [facility] Fwd Diagnoses Acute pyelonephritis N10 Abnormal ultrasound of endometrium R93.5 Acute blood loss anemia D62 Fever R50.9 Acute kidney injury N17.9 Abnormal uterine bleeding (AUB) N93.9 Elevated d-dimer R79.89 Dyspnea R06.00 Headache R51 Anxiety and depression F41.9; F32.9
[2020-06-03 13:00] LABS: Basophils % 0.2 %; Eosinophils % 0.2 %; Hematocrit 26.9 % (37.0-47.0); Hemoglobin 7.9 g/dL (11.5-15.3); Lymphocytes # 1.3 10^3/uL (0.8-4.8); Lymphocytes % 9.9 %; Mean Corpuscular HGB Conc 29.4 g/dL (30.0-36.0); Mean Corpuscular Hemoglobin 26.7 pg (28.0-34.0); Mean Corpuscular Volume 90.9 fL (81-99); Mean Platelet Volume 11.1 fL (7.4-10.4); Monocytes # 1.3 10^3/uL (0.2-0.9); Monocytes % 9.8 %; Neutrophils # 10.29 10^3/uL (1.8-7.7); Neutrophils % 79.1 %; Nucleated Red Blood Cells % 0 %; Platelet Count 280 10^3/cmm (130-400); Red Blood Count 2.96 10^6/uL (4.1-5.3); Red Cell Distribution Width 17.2 % (12.1-15.1)
--- NOTE | 2020-06-03 17:13 | PM.DCS ---
Discharge Providers Date of Admission: 06/01/20 22:26 Date of Discharge: June 03, 2020 Attending Provider at Admission: Darrell Davey Attending Provider at Discharge: Laurie Hernandez MD Primary Care Provider: Leslie Kimball APN Diagnoses at Discharge Discharge Diagnosis (1) Acute pyelonephritis: Status: Acute (2) Abnormal ultrasound of endometrium: Status: Acute (3) Acute blood loss anemia: Status: Acute (4) Fever: Status: Acute (5) Acute kidney injury: Status: Acute (6) Abnormal uterine bleeding (AUB): Status: Acute (7) Elevated d-dimer: Status: Acute (8) Dyspnea: Status: Acute (9) Headache: Status: Acute (10) Anxiety and depression: Status: Acute Reason for Visit Reason for Visit: abnormal labs Hospital Course Discharge Summary: Alma Peña is a 49 year old plesant lady with history of abnormal uterine bleeding for which she had evaluation by TVUS and endometrial biopsy in September, subsequently with recurrence and additional evaluation on 04/27, with implantation of Nexplanon and a course of tranexamic acid, subsequently again with recurrence of vaginal bleeding, was 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 Sinus tachycardia noted with pulse 110. She was referred to emergency department for evaluation. Here fever 102.5. Due to this she was tested for COVID-19 at [facility] for which today she received the result which was negative. She received 2 units blood tranfusion and remained hemodynamically stable during course of admission. CTA chest negative for PE. Abnormal appearing endometrium on US and CT, underwwent D&C yesetrday which she tolerated well. HB stable at 7.9. Also noted noted to have R pyelonpehritis, urine cx with GNR, pending identification. Received empiric rocephin, being discharged on po levaquin. Final cx results need to be followed with PMD visit in 3-4 dayus along with Hb check. F/up with JEWELRY ENGRAVER in one week. Physical Exam Narrative: EXAM NARRATIVE: GEN: Awake, alert and oriented, no acute distress CVS: S1S2 N RS: CTA B/L Abd: Soft, nt/nd , bs+ CERTIFIED ADDICTION COUNSELOR: no focal neuro deficits Discharge Data Data Completed and Pending: Completed Studies During Hospitalization Category Date Time Status CT angio chest w abd pel w con Urge nt Cat Scan 06/01/20 20:54 Completed XR chest 1V faye ble [id number] Stat Exams 06/01/20 17:34 Completed US pelvic complet e* [id number] Urgent Ultrasound 06/01/20 18:42 Completed Pending at discharge Category Date Time Status Blood Culture Sta t Lab 06/02/20 08:52 Results Comprehensive Met abolic Panel AM LA BS Lab 06/04/20 04:00 Ordered Comprehensive Met abolic Panel AM LA BS Lab 06/05/20 04:00 Ordered OR HCG Qualitativ e Urine Routine Lab 06/02/20 11:58 Ordered Urine Culture Sta t Lab 06/01/20 22:10 Results Pathology: Surgic al [PTH] Routine Pth 06/02/20 19:48 Ordered Labs from last 24 hours 06/03/20 06/03/20 06/02/20 12:00 06:08 23:55 WBC 13.0 H RBC 2.96 L Hgb 7.9 L 7.5 L Hct 26.9 L 25.2 L MCV 90.9 MCH 26.7 L MCHC 29.4 L RDW 17.2 H Plt Count 280 MPV 11.1 H Neut % (Auto) 79.1 Lymph % (Auto) 9.9 [place] % (Auto) 9.8 Eos % (Auto) 0.2 Baso % (Auto) 0.2 Neut # (Auto) 10.29 H Lymph # (Auto) 1.3 [place] # (Auto) 1.3 H Eos # (Auto) 0.0 Baso # (Auto) 0.0 Nucleated RBC % (a uto) 0 Nucleated RBCs # 0.0 Sodium 140 Potassium 4.0 Chloride 112 H Carbon Dioxide 16 L Anion Gap 16.0 BUN 23 H Creatinine 1.3 H GFR Calculation 43.5 L Glucose 126 H Calculated Osmolal ity 288 Calcium 8.1 L Total Bilirubin 0.2 AST 8 ALT 16 Alkaline Phosphata se 128 H Total Protein 6.0 L Albumin 2.8 L Globulin 3.2 Vitals: Last Vital Signs Temp 98.9 F 06/03/20 12:00 Pulse 87 06/03/20 12:00 Resp 23 H 06/03/20 12:00 BP 125/72 06/03/20 12:00 Pulse Ox 98 06/03/20 08:00 Discharge Plan Discharge Patient Disposition: Home, Self-Care Condition: Stable Prescriptions: New tramadol 50 mg Tablet 50 mg PO Q8H PRN (Reason: Moderate Pain) 7 Days Qty: 30 RF: 0 ferrous fumarate 325 mg (106 mg iron) tablet 325 mg PO DAILY Qty: 60 RF: 1 levofloxacin [Levaquin] 500 mg tablet 500 mg PO DAILY 7 Days RF: 0 Continued citalopram 40 mg tablet 40 mg PO DAILY RF: 0 cyclobenzaprine 10 mg tablet 10 mg PO TID PRN (Reason: unknown) RF: 0 alprazolam [Xanax] 0.5 mg tablet 0.25 - 0.5 mg PO BID PRN (Reason: unknown) RF: 0 multivitamin Tablet 1 tab PO DAILY RF: 0 Tylenol Extra Strength 500 mg Tablet 1,000 mg PO PRN RF: 0 Discontinued ibuprofen 800 mg tablet 800 mg PO TID PRN (Reason: Pain) RF: 0 Discharge Orders: Discharge Order (Routine); Ordered 06/03/20 Ordered By: Laurie Hernandez Other Ambulatory Orders: Hemoglobin and Hematocrit (Routine) Timeframe: 3 Days Facility: [facility] - Location: Lab - Main Lab Ordered By: Laurie Hernandez Referrals: Ronnell Santana MD [Physician] - 7-10 days Kimball,KENRICK Nelson [Primary Care Provider] - (post discharge f/up. Follow urine cx, HB level ) Discharge Diet: Usual diet Discharge Activity: Resume usual activity Discharge Attestations Time Spent in Discharge Care*: greater than 30 min Quality Metrics Clinical Quality Measures During this hospital stay, did patient experience: None Coding Level of Care Code Acute Phlebotomist Medical Lab Assistant for Chg Fwd Diagnoses Acute pyelonephritis N10 Abnormal ultrasound of endometrium R93.5 Acute blood loss anemia D62 Fever R50.9 Acute kidney injury N17.9 Abnormal uterine bleeding (AUB) N93.9 Elevated d-dimer R79.89 Dyspnea R06.00 Headache R51 Anxiety and depression F41.9; F32.9
== END 2020-06-03 17:30 | disposition home or self-care (01) | DRG 854 ==
LOC: ER 22:05 → ICU 23:02
PROVIDERS: Family Medicine; Obstetrics & Gynecology; Admitting Provider Internal Medicine; PCP Nurse Practitioner Family; Visit Provider Student in an Organized Health Care Education/Training Program
PROC: 0U797ZZ Dilation of Uterus, Via Natural or Artificial Opening (ICD-10-PCS; CPT 58120; principal; 2020-06-02 17:00)
DX: A41.9 Sepsis, unspecified organism (principal); D62 Acute posthemorrhagic anemia; N17.9 Acute kidney failure, unspecified; N11.8 Other chronic tubulo-interstitial nephritis; F41.8 Other specified anxiety disorders; N93.9 Abnormal uterine and vaginal bleeding, unspecified; F17.210 Nicotine dependence, cigarettes, uncomplicated
CPT/HCPCS: 12345; 36415; 36430; 71045; 71275; 74177; 76856; 80048; 80053; 81001; 83605; 85014; 85018; 85025; 85378; 86850; 86900; 86920; 87040; 87077; 87086; 87186; 87804; 88305; 94664; 96375; 99283; J0690; J0696; J1200; J2405; J2704; J2920; J3010; J7030; P9016; Q9967

== ENCOUNTER → 2021-01-23 14:53 | Outpatient (BNVA) | payer BC, OTHER, SELFPAY | PROVIDERS: PCP Nurse Practitioner Family; Visit Provider Orthopaedic Surgery | DX: M54.5 Low back pain (principal); M48.061 Spinal stenosis, lumbar region without neurogenic claudication | CPT/HCPCS: 72110 ==

== ENCOUNTER → 2021-04-09 11:43 | Outpatient (BNVA) | payer BC, SELFPAY | PROVIDERS: PCP Nurse Practitioner Family; Visit Provider Obstetrics & Gynecology | DX: Z30.9 Encounter for contraceptive management, unspecified (principal) | CPT/HCPCS: 81025 ==

== ENCOUNTER 2022-08-29 14:30 | Outpatient (CLI) | payer BC, SELFPAY ==
--- NOTE | 2022-08-29 14:48 | MM_ITS ---
WS: [id number] BILATERAL 3D TOMOSYNTHESIS DIGITAL SCREENING MAMMOGRAPHY WITH CAD CLINICAL INFORMATION: SCREEN HISTORY: Screening mammogram. No current complaints. COMPARISON: June 09, 2018 TECHNIQUE: Bilateral CC and MLO views. FINDINGS: Scattered fibroglandular densities bilaterally. No suspicious focal mass, asymmetry, calcifications, or architectural distortion. No evidence of malignancy. MM/[place] [id number] IMPRESSION: BI-RADS: 1-Negative FOLLOW UP: 1 Year Follow-up Recommend return to annual screening mammography.
== END 2022-08-29 14:31 | disposition home or self-care (01) ==
LOC: RAD 14:30
PROVIDERS: PCP Nurse Practitioner Family; Visit Provider Nurse Practitioner Family
DX: Z12.31 Encounter for screening mammogram for malignant neoplasm of breast (principal)
CPT/HCPCS: 77063; 77067